=== PATIENT | male | born 1980 | race Caucasian/White ===

== ENCOUNTER 2018-10-16 08:23 | Emergency (ER) | payer OTHER ==
[2018-10-16 08:51] LABS: #Eosinphils 0.1 thou/uL (0.0-0.7); #Lymphocytes 1.3 thou/uL (1.20-3.40); #Monocytes 0.4 thou/uL (0.11-0.59); #Neutrophils 2.2 thou/uL (1.40-6.50); %Basophils 0.6 % (0.0-1.0); %Eosinophils 3.4 % (0.0-10.0); %Lymphocytes 31.3 % (21.0-51.0); %Neutrophils 54.7 % (42.0-75.0); Hemoglobin 16.3 g/dL (14.0-18.0); Mean Corpuscular HGB CONC 34.1 g/dL (32.0-36.0); Mean Corpuscular Hemoglobin 33.2 pg (27.0-31.0); Mean Corpuscular Volume 97.4 fL (78.0-98.0); Mean Platelet Volume 7.5 fL (7.4-10.4); Platelet Count 185 thou/uL (130-400); RBC Distribution Width 11.3 % (11.5-14.5); Red Blood Cell (RBC) Count 4.91 mill/uL (4.70-6.10); White Blood Cell (WBC) Count 4.1 thou/uL (4.8-10.8)
[2018-10-16 09:14] LABS: ALT (SGPT) 42 U/L (8-55); AST (SGOT) 30 U/L (5-34); Albumin 4.6 g/dL (3.5-5.0); Alkaline Phosphatase 52 U/L (40-150); Anion Gap 10 mmol/L (10-20); BUN (Urea Nitrogen) 11 mg/dL (8.9-20.6); Bilirubin, Total 0.5 mg/dL (0.2-1.2); Calc. Creatinine Clearance 0 mL/min (70-130); Calcium 9.6 mg/dL (7.8-10.44); Carbon Dioxide 29 mmol/L (22-29); Chloride 104 mmol/L (98-107); Estimated GFR-MDRD Greater than 90; Glucose 101 mg/dL (70-105); Lipase 18 U/L (8-78); Potassium 4.5 mmol/L (3.5-5.1); Protein, Total 7.6 g/dL (6.0-8.3); Sodium 138 mmol/L (136-145)
[2018-10-16] MEDS ORDERED: ISOVUE-370 76%-LOCM 1 ML ONE (10:09)
--- NOTE | 2018-10-16 10:12 | CT ---
CT ABDOMEN AND PELVIS WITH CONTRAST: HISTORY: Right lower quadrant pain. COMPARISON: None. FINDINGS: Lung bases are clear. No pericardial effusion. Diffuse hepatic steatosis. Gallbladder is normal. The spleen and pancreas are normal. Hydroureteral nephrosis. Adrenal glands are normal. The appendix is visualized and is normal. Subtle calcification of the crania aspect of the urinary bladder at the urachal remnant. No free intraperitoneal gas or fluid. No adenopathy. Aortoiliac contour is nonaneurysmal. The skeleton is unremarkable. IMPRESSION: No acute inflammatory process within the abdomen or pelvis. Normal appendix. POS: [facility]
[2018-10-16 10:24] LABS: Bilirubin Negative (Negative); Blood, Urine Negative (Negative); Clarity CLEAR (Clear); Glucose, Urine (Dipstick) Negative (Negative); Leukocyte Negative (Negative); Nitrite Negative (Negative); Protein, Urine (Dipstick) Negative (Neg-Trace); Specific Gravity, Urine 1.026 (1.002-1.036); Urobilinogen 0.2 mg/dL (0.2-1.0); pH, Urine 6.5 (5.0-9.0)
[2018-10-16] MEDS ORDERED: Dicyclomine 20 MG TAB ONE (11:06)
== END 2018-10-16 11:28 | disposition home or self-care (01) ==
LOC: ERS 08:23
DX: R10.31 Right lower quadrant pain (principal); F17.220 Nicotine dependence, chewing tobacco, uncomplicated
CPT/HCPCS: 36415; 74177; 80053; 81003; 83690; 85025; 96360; Q9966